=== PATIENT | female | born 1935 | race Caucasian/White ===

== ENCOUNTER 2018-01-31 09:29 | Day surgery (SDC) | payer MEDICARE, OTHER ==
[~2018-01-31] VITALS: Ht 170.2 cm; Wt 50.8 kg
[2018-01-31] MEDS ORDERED: fentaNYL 0.05 MG/ML VIAL ONE (11:45)
[2018-01-31] MEDS ORDERED: MIDAZOLAM 2 MG/2 ML VIAL ONE (11:46)
== END 2018-01-31 12:45 | disposition home or self-care (01) ==
LOC: MOR 09:29 → MMU 09:29 → MOR 12:45
PROVIDERS: ATTEND Internal Medicine Gastroenterology
DX: K31.89 Other diseases of stomach and duodenum (principal); K21.9 Gastro-esophageal reflux disease without esophagitis; E78.5 Hyperlipidemia, unspecified; M19.90 Unspecified osteoarthritis, unspecified site; M81.0 Age-related osteoporosis without current pathological fracture; Z79.899 Other long term (current) drug therapy; Z98.42 Cataract extraction status, left eye
CPT/HCPCS: 36415; 43239; 86677; J2250; J7030; J3010

== ENCOUNTER 2018-03-22 20:02 | Emergency (ER) | payer MEDICARE, OTHER ==
[~2018-03-22] VITALS: Ht 149.9 cm; Wt 49.0 kg
[2018-03-22 20:07] VITALS: BP 132/98
[2018-03-22] MEDS: KETOROLAC 30 MG/ML VIAL IM ONE (21:18)
[2018-03-22] MEDS ORDERED: DIAZEPAM 5 MG TAB ONE (21:31)
[2018-03-22] MEDS: DIAZEPAM 2 MG TAB PO STA (21:34)
[2018-03-22 21:41] VITALS: BP 129/89
== END 2018-03-22 21:41 | disposition home or self-care (01) ==
LOC: MED 20:02
DX: M16.11 Unilateral primary osteoarthritis, right hip (principal); M54.30 Sciatica, unspecified side; K21.9 Gastro-esophageal reflux disease without esophagitis
CPT/HCPCS: 73502; 96372; 99283; J1885; Q0092

== ENCOUNTER 2018-06-18 08:53 | Emergency (ER) | payer MEDICARE ==
[~2018-06-18] VITALS: Ht 134.6 cm; Wt 49.4 kg
[2018-06-18 08:55] VITALS: BP 131/73
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
--- NOTE | 2018-06-18 09:10 | NUR ---
pmh- osteoporosis, GERD, gastritis
--- NOTE | 2018-06-18 09:10 | NUR ---
PT W/C TO BED 11
--- NOTE | 2018-06-18 09:12 | NUR ---
Dr. Byrd at bedside evaluating patient.
[2018-06-18] MEDS ORDERED: MORPHINE SULFATE ORAL SOLN 2 MG/ML UDC PO ONE (09:25)
--- NOTE | 2018-06-18 09:30 | NUR ---
lab at bedside
[2018-06-18 09:43] LABS: BASOPHILS % (AUTO) 0.7 % (0.0-2.0); EOSINOPHILS # (AUTO) 0.2 K/uL (0-0.4); EOSINOPHILS % (AUTO) 3.1 % (0.0-4.0); HEMOGLOBIN 13.9 g/dL (12.0-16.0); LYMPHOCYTES % (AUTO) 17.7 % (20.5-51.1); MEAN CORPUSCULAR HEMOGLOBIN 30 pg (27-31); MEAN CORPUSCULAR HGB CONC 33 g/dL (33-37); MEAN CORPUSCULAR VOLUME 91.6 fL (80-94); MONOCYTES # (AUTO) 0.7 K/uL (0.8-1.0); MONOCYTES % (AUTO) 12.6 % (1.7-9.3); NEUTROPHILS # (AUTO) 3.9 K/uL (1.8-7.7); NEUTROPHILS % (AUTO) 65.9 % (42.2-75.2); PLATELET COUNT (AUTO) 222 K/uL (140-450); RED BLOOD CELL COUNT(AUTO) 4.58 MIL/uL (4.20-5.40); RED CELL DISTRIBUTION WIDTH 14.1 % (11.6-13.7); WHITE BLOOD COUNT (AUTO) 5.9 K/uL (4.8-10.8)
[2018-06-18 09:43] LABS: BILIRUBIN,URINE NEGATIVE (NEGATIVE); BLOOD, URINE TRACE-I (NEGATIVE); COLOR,URINE YELLOW (YELLOW); LEUKOCYTE ESTERASE ,URINE 1+ (NEGATIVE); NITRITE, URINE NEGATIVE (NEGATIVE); UGLUCOSE NEGATIVE (NEGATIVE)
[2018-06-18 09:46] LABS: APPEARANCE,URINE HAZY (CLEAR)
--- NOTE | 2018-06-18 09:46 | NUR ---
pt being taken to rad
[2018-06-18 09:52] LABS: RBC,URINE 0-5 /HPF (0-5)
[2018-06-18 10:06] LABS: ANION GAP 11.2 (8-16); CARBON DIOXIDE 27.9 mmol/L (21-32); CHLORIDE 105 mmol/L (98-107); CREATININE 0.8 mg/dL (0.6-1.3); GLUCOSE 88 mg/dL (74-106); POTASSIUM 4.1 mmol/L (3.5-5.1); SODIUM SERUM 140 mmol/L (136-145); UREA NITROGEN, BLOOD 13 mg/dL (7-18)
--- NOTE | 2018-06-18 11:04 | NUR ---
PT WHEELCHAIRED TO BATHROOM
--- NOTE | 2018-06-18 11:40 | NUR ---
RE-EVALUATING PT
[2018-06-18] MEDS ORDERED: KETOROLAC 15 MG/ML VIAL IM ONE (12:25)
--- NOTE | 2018-06-18 12:30 | NUR ---
PT AT CT
--- NOTE | 2018-06-18 12:48 | NUR ---
PT REQUESTING TO EAT, PER DR JAMA, PT IS TO REMAIN NPO AT THIS TIME
--- NOTE | 2018-06-18 15:02 | NUR ---
VSS AT THIS TIME. AA0X4. FAMILY AT BEDSIDE
[2018-06-18 17:08] VITALS: BP 138/65
--- NOTE | 2018-06-18 17:09 | NUR ---
Patient discharged with v/s stable. Written and verbal after care instructions given and explained. Patient verbalized understanding. Ambulatory with steady gait. All questions addressed prior to discharge. Advised to follow up with PMD.
== END 2018-06-18 17:09 | disposition home or self-care (01) ==
LOC: MED 08:53
DX: S22.31XA Fracture of one rib, right side, initial encounter for closed fracture (principal); M25.551 Pain in right hip; M25.511 Pain in right shoulder; R51 Headache; W18.09XA Striking against other object with subsequent fall, initial encounter; Y93.89 Activity, other specified; Y92.89 Other specified places as the place of occurrence of the external cause; Y99.8 Other external cause status
CPT/HCPCS: 36415; 70450; 71111; 72080; 72125; 72131; 72192; 73030; 73502; 73552; 80048; 81001; 85025; 87086; 96372; 99284; J1885

== ENCOUNTER 2018-10-21 21:13 | Emergency (ER) | payer MEDICARE ==
[~2018-10-21] VITALS: Ht 152.4 cm; Wt 49.9 kg
[2018-10-21 21:13] VITALS: BP 176/87
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
--- NOTE | 2018-10-21 21:13 | NUR ---
CE ALS TO ER BED 5
[2018-10-21] MEDS ORDERED: ACETAMINOPHEN EXTRA STRENGTH 500 MG TAB PO ONE (21:15)
[2018-10-21] MEDS ORDERED: ACETAMINOPHEN EXTRA STRENGTH 500 MG TAB ONE (21:34)
--- NOTE | 2018-10-21 22:30 | NUR ---
PT STATES PAIN RELIEVED. ALERT TO NAME, TIME, PLACE, AND EVENT. NO C/O AT THIS TIME. FAMILY AT BEDSIDE. CONTINUE TO MONITOR.
[2018-10-21] MEDS ORDERED: BACITRACIN OINT 500 UNITS/GM PKT TP ONE (23:15)
[2018-10-21] MEDS ORDERED: LIDOCAINE/EPI 1% 1:100000 20 ML VIAL INJ ONE (23:15)
[2018-10-22 00:05] VITALS: BP 138/86
--- NOTE | 2018-10-22 00:05 | NUR ---
DISCHARGE PAPERS GIVEN TO PT. RX OF BACITRACIN AND ACETAMINOPHEN GIVEN. SIDE EFFECTS EXPLAINED. ALERT TO NAME, PLACE, TIME, AND EVENT. 0/10 PAIN. AMBULATORY WITH STEADY GAIT. [facility]ED BY [facility] FOR [facility]. INSTRUCTED TO RETURN TO ER IN 5 DAYS FOR STAPLE REMOVAL. ALSO INSTRUCTED WHEN TO RETURN PRIOR TO ESABLISHED RETURN TIME. PT VERBALLIZED UNDERSTANDING OF DC IN STRUCTIONS. ALL QUESTIONS ANSWERED.
--- NOTE | 2018-10-22 00:07 | NUR ---
BACITRACIN PLACED ON PTS WOUND
== END 2018-10-22 00:05 | disposition home or self-care (01) ==
LOC: MED 21:13
DX: S01.01XA Laceration without foreign body of scalp, initial encounter (principal); M54.2 Cervicalgia; K21.9 Gastro-esophageal reflux disease without esophagitis; Z98.890 Other specified postprocedural states; W17.89XA Other fall from one level to another, initial encounter; Y93.89 Activity, other specified; Y92.89 Other specified places as the place of occurrence of the external cause; Y99.8 Other external cause status
CPT/HCPCS: 12001; 70450; 71045; 72125; 99284; J2001; Q0092

== ENCOUNTER 2018-10-27 12:10 | Emergency (ER) | payer MEDICARE, OTHER ==
[~2018-10-27] VITALS: Ht 147.3 cm; Wt 50.0 kg
[2018-10-27 12:29] VITALS: BP 122/67
--- NOTE | 2018-10-27 12:31 | NUR ---
PT AMBULATED TO LOBBY AT THIS TIME, VSS.
--- NOTE | 2018-10-27 13:19 | NUR ---
PT TAKEN TO BED 5.
--- NOTE | 2018-10-27 13:20 | NUR ---
PT WAS HERE AT ED ON 10/21/18 S/P MECHANICAL FALL WITH LACERATION ON L FRONTAL HEAD. PRESENTED TO ED FOR REMOVAL OF YULY ON L FRONTAL HEAD. AAOX4, GCS 15, RR EVEN UNLABORED, PAIN OF 3/10 ON LAC AREA NO SWELLING, BLEEDING, DRAINAGE NOTED, WITH [address] ED MD [address]. HUMPHREYS MADE AWARE, WILL CONTINUE TO MONITOR CLOSELY.
[2018-10-27 15:10] VITALS: BP 122/67
--- NOTE | 2018-10-27 15:10 | NUR ---
Patient discharged with v/s stable. Written and verbal after care instructions given and explained. Patient alert, oriented and verbalized understanding of instructions. Ambulatory with steady gait. All questions addressed prior to discharge. ID band removed. Patient advised to follow up with PMD. Opportunity to ask questions provided and answered.
== END 2018-10-27 15:10 | disposition home or self-care (01) ==
LOC: MED 12:10
DX: S01.81XD Laceration without foreign body of other part of head, subsequent encounter (principal); K21.9 Gastro-esophageal reflux disease without esophagitis; W18.39XD Other fall on same level, subsequent encounter
CPT/HCPCS: 99281

== ENCOUNTER 2019-08-19 04:29 | Emergency (ER) | payer MEDICARE, OTHER ==
[~2019-08-19] VITALS: Ht 142.2 cm; Wt 50.3 kg
[2019-08-19 04:31] VITALS: BP 125/86
[2019-08-19] MEDS ORDERED: NACL 0.9% 1,000 ML IV SCH (04:43)
[2019-08-19] MEDS ORDERED: KETOROLAC 30 MG/ML VIAL IVP ONE (04:45)
[2019-08-19 05:10] LABS: BASOPHILS % (AUTO) 0.6 % (0.0-2.0); EOSINOPHILS # (AUTO) 0.1 K/uL (0-0.4); HEMATOCRIT 45.5 % (36-48); HEMOGLOBIN 15.2 g/dL (12.0-16.0); LYMPHOCYTES # (AUTO) 0.9 K/uL (2.5-16.5); LYMPHOCYTES % (AUTO) 23.4 % (20.5-51.1); MEAN CORPUSCULAR HEMOGLOBIN 30 pg (27-31); MEAN CORPUSCULAR HGB CONC 33 g/dL (33-37); MEAN CORPUSCULAR VOLUME 90.9 fL (80-94); MONOCYTES # (AUTO) 0.5 K/uL (0.8-1.0); MONOCYTES % (AUTO) 13.8 % (1.7-9.3); NEUTROPHILS # (AUTO) 2.3 K/uL (1.8-7.7); NEUTROPHILS % (AUTO) 60.2 % (42.2-75.2); PLATELET COUNT (AUTO) 150 K/uL (140-450); RED BLOOD CELL COUNT(AUTO) 5.01 MIL/uL (4.20-5.40); RED CELL DISTRIBUTION WIDTH 13.8 % (11.6-13.7); WHITE BLOOD COUNT (AUTO) 3.9 K/uL (4.8-10.8)
[2019-08-19] MEDS ORDERED: ALUMINUM HYD/MAG/SIMETHICONE 30 ML UDC ONE (05:23)
[2019-08-19] MEDS ORDERED: LIDOCAINE VISCOUS 2% 20 ML UDC ONE (05:23)
[2019-08-19 05:24] LABS: ALBUMIN 3.7 g/dL (3.4-5.0); ANION GAP 15.2 (8-16); ASPARTATE AMINOTRANSFERASE 29 U/L (15-37); CARBON DIOXIDE 26.2 mmol/L (21-32); CHLORIDE 98 mmol/L (98-107); CREATININE 0.9 mg/dL (0.6-1.3); GLUCOSE 120 mg/dL (74-106); LIPASE 264 U/L (73-393); POTASSIUM 4.4 mmol/L (3.5-5.1); SODIUM SERUM 135 mmol/L (136-145); TOTAL BILIRUBIN 0.4 mg/dL (0.0-1.0); UREA NITROGEN, BLOOD 10 mg/dL (7-18)
[2019-08-19] MEDS ORDERED: DICYCLOMINE HCL LIQUID 10 MG/5 ML UDC ONE (05:24)
[2019-08-19] MEDS ORDERED: DICYCLOMINE HCL LIQUID 20 MG, ALUMINUM HYD/MAG/SIMETHICONE 30 ML, LIDOCAINE VISCOUS 2% ... PO ONE ×3 (05:25)
[2019-08-19 05:53] VITALS: BP 125/86
== END 2019-08-19 05:54 | disposition home or self-care (01) ==
LOC: MED 04:29
DX: R10.13 Epigastric pain (principal); R11.2 Nausea with vomiting, unspecified; K21.9 Gastro-esophageal reflux disease without esophagitis
CPT/HCPCS: 36415; 80053; 83690; 85025; 96361; 96374; 99283; J1885; J7030

== ENCOUNTER 2019-08-20 03:17 | Emergency (ER) | payer MEDICARE, OTHER ==
[~2019-08-20] VITALS: Ht 147.3 cm; Wt 50.8 kg
[2019-08-20 03:25] VITALS: BP 133/78
--- NOTE | 2019-08-20 03:27 | NUR ---
PT AMBULATED TO BED #11
--- NOTE | 2019-08-20 03:31 | NUR ---
83F PRESENTS TO ED WITH C/O ABDOMINAL PAIN WITH N/V X4 DAYS. PT WAS SEEN YESTERDAY AND WAS SENT HOME WITH PAIN MEDS. DENIES DIARRHEA AND BLOOD IN STOOL. DENIES SOB/COUGH. RESPIRATIONS EVEN AND UNLABORED. BED LOWEST AND LOCKED. MEDHX- NONE NKA
--- NOTE | 2019-08-20 03:44 | NUR ---
ANTHONY GARCIA AT BEDSIDE EVALUATING PT
[2019-08-20] MEDS ORDERED: ONDANSETRON 4 MG/2 ML VIAL IVP ONE (03:50)
[2019-08-20] MEDS ORDERED: MORPHINE SULFATE 4 MG/ML SYR IVP ONE (03:50)
--- NOTE | 2019-08-20 03:59 | NUR ---
PT MEDICATED WITH ZOFRAN AND MORPHINE IVP
--- NOTE | 2019-08-20 04:01 | NUR ---
BLOOD DRAWN AND SENT TO LAB
[2019-08-20 04:19] LABS: HEMATOCRIT 40.6 % (36-48); HEMOGLOBIN 13.7 g/dL (12.0-16.0); MEAN CORPUSCULAR HEMOGLOBIN 31 pg (27-31); MEAN CORPUSCULAR HGB CONC 34 g/dL (33-37); MEAN CORPUSCULAR VOLUME 90.6 fL (80-94); PLATELET COUNT (AUTO) 146 K/uL (140-450); RED BLOOD CELL COUNT(AUTO) 4.48 MIL/uL (4.20-5.40); RED CELL DISTRIBUTION WIDTH 13.2 % (11.6-13.7); WHITE BLOOD COUNT (AUTO) 2.7 K/uL (4.8-10.8)
[2019-08-20 04:22] LABS: ALBUMIN 3.3 g/dL (3.4-5.0); ASPARTATE AMINOTRANSFERASE 30 U/L (15-37); CARBON DIOXIDE 26.2 mmol/L (21-32); CHLORIDE 99 mmol/L (98-107); CREATININE 0.9 mg/dL (0.6-1.3); GLUCOSE 123 mg/dL (74-106); LIPASE 381 U/L (73-393); POTASSIUM 4.2 mmol/L (3.5-5.1); SODIUM SERUM 134 mmol/L (136-145); TOTAL BILIRUBIN 0.4 mg/dL (0.0-1.0); UREA NITROGEN, BLOOD 8 mg/dL (7-18)
[2019-08-20 04:26] LABS: EOSINOPHILS % (MANUAL) 2 % (0-4); LYMPHOCYTES % (MANUAL) 34 % (20-46); MONOCYTES % (MANUAL) 13 % (5-12)
[2019-08-20 04:46] VITALS: BP 123/76
--- NOTE | 2019-08-20 04:47 | NUR ---
PT REPORTS DECREASED PAIN FROM 9/10 TO 4/10 AND TOLERABLE. NO FURTHER NEEDS AT THIS TIME. PT LAYING DOWN IN BED WITH HOB ELEVATED AND BED LOWEST AND LOCKED
--- NOTE | 2019-08-20 05:12 | NUR ---
PT TAKEN TO CT VIA [facility]
--- NOTE | 2019-08-20 05:28 | NUR ---
PT RETURNED FROM CT TO BED 11
--- NOTE | 2019-08-20 06:33 | NUR ---
Patient discharged with v/s stable. Written and verbal after care instructions given and explained. Patient alert, oriented and verbalized understanding of instructions. Ambulatory with steady gait. All questions addressed prior to discharge. ID band removed. Patient advised to follow up with PMD. Rx of ZOFRAN AND NORCO given. Patient educated on indication of medication including possible reaction and side effects. Opportunity to ask questions provided and answered.
== END 2019-08-20 06:34 | disposition home or self-care (01) ==
LOC: MED 03:17
DX: R10.9 Unspecified abdominal pain (principal); K21.9 Gastro-esophageal reflux disease without esophagitis
CPT/HCPCS: 36415; 74177; 80053; 83690; 85025; 96374; 96375; 99285; J2270; J2405; Q9967

== ENCOUNTER 2020-12-04 23:50 | Observation (INO) | payer OTHER, MEDICARE, SELFPAY ==
[~2020-12-04] VITALS: Ht 144.8 cm; Wt 46.7 kg
[2020-12-05 00:46] VITALS: BP 154/90
[2020-12-05] MEDS ORDERED: ACETAMINOPHEN EXTRA STRENGTH 500 MG TAB PO ONE (00:55)
[2020-12-05] MEDS ORDERED: DICYCLOMINE HCL LIQUID 20 MG, ALUMINUM HYD/MAG/SIMETHICONE 30 ML, LIDOCAINE VISCOUS 2% ... PO ONE ×3 (00:55)
[2020-12-05] MEDS ORDERED: ONDANSETRON 4 MG ODT PO ONE (00:55)
[2020-12-05] MEDS ORDERED: ONDANSETRON 4 MG ODT ONE (00:59)
[2020-12-05] MEDS ORDERED: ACETAMINOPHEN EXTRA STRENGTH 500 MG TAB ONE ×2 (01:00→02:40)
[2020-12-05] MEDS ORDERED: DICYCLOMINE HCL LIQUID 10 MG/5 ML UDC ONE ×2 (01:01→02:41)
[2020-12-05] MEDS ORDERED: ALUMINUM HYD/MAG/SIMETHICONE 30 ML UDC ONE (01:01)
[2020-12-05 01:16] LABS: BASOPHILS % (AUTO) 0.3 % (0.0-2.0); EOSINOPHILS # (AUTO) 0.1 K/uL (0-0.4); EOSINOPHILS % (AUTO) 2.5 % (0.0-4.0); HEMATOCRIT 42.1 % (36-48); HEMOGLOBIN 14.2 g/dL (12.0-16.0); LYMPHOCYTES # (AUTO) 0.8 K/uL (2.5-16.5); LYMPHOCYTES % (AUTO) 14.2 % (20.5-51.1); MEAN CORPUSCULAR HEMOGLOBIN 31 pg (27-31); MEAN CORPUSCULAR HGB CONC 34 g/dL (33-37); MONOCYTES # (AUTO) 0.5 K/uL (0.8-1.0); NEUTROPHILS # (AUTO) 4.5 K/uL (1.8-7.7); PLATELET COUNT (AUTO) 206 K/uL (140-450); RED BLOOD CELL COUNT(AUTO) 4.62 MIL/uL (4.20-5.40); RED CELL DISTRIBUTION WIDTH 13.9 % (11.6-13.7); WHITE BLOOD COUNT (AUTO) 5.9 K/uL (4.8-10.8)
[2020-12-05 01:35] LABS: ALBUMIN 3.9 g/dL (3.4-5.0); ANION GAP 10.6 (8-16); ASPARTATE AMINOTRANSFERASE 200 U/L (15-37); CARBON DIOXIDE 29.1 mmol/L (21-32); CHLORIDE 102 mmol/L (98-107); CREATININE 0.8 mg/dL (0.6-1.3); GLUCOSE 134 mg/dL (74-106); LIPASE 809 U/L (73-393); POTASSIUM 3.7 mmol/L (3.5-5.1); SODIUM SERUM 138 mmol/L (136-145); TOTAL BILIRUBIN 0.8 mg/dL (0.0-1.0); UREA NITROGEN, BLOOD 18 mg/dL (7-18)
[2020-12-05] MEDS ORDERED: NACL 0.9% 1,000 ML IV ONE (02:00)
[2020-12-05] MEDS ORDERED: ONDANSETRON 4 MG TAB ONE (02:44)
[2020-12-05] MEDS ORDERED: MORPHINE SULFATE 2 MG/ML SYR IVP PRN (06:30)
[2020-12-05] MEDS ORDERED: ACETAMINOPHEN 325 MG TAB PO PRN (06:30)
[2020-12-05] MEDS ORDERED: POTASSIUM CHLORIDE 40 MEQ, LIDOCAINE MPF 1% 25 MG in NACL 0.9% 250 ML IV PRN (06:30)
[2020-12-05] MEDS ORDERED: DOCUSATE SODIUM 100 MG GELCAP PO PRN (06:30)
[2020-12-05] MEDS ORDERED: MAG SULF 2000 MG/WATER PREMIX 50 ML IV PRN (06:30)
[2020-12-05] MEDS ORDERED: ONDANSETRON 4 MG/2 ML VIAL IM/IVP PRN (06:30)
[2020-12-05] MEDS ORDERED: HYDROcodone/APAP 5/325 MG 1 TAB TAB PO PRN (06:30)
[2020-12-05] MEDS ORDERED: SODIUM PHOS / POTASSIUM PHOS 1 PKT PDR PO PRN (06:30)
[2020-12-05] MEDS ORDERED: hydrALAZINE 10 MG TAB PO PRN (06:50)
[2020-12-05 07:08] LABS: MAGNESIUM 2.3 mg/dL (1.8-2.4)
[2020-12-05] MEDS: PANTOPRAZOLE 40 MG INJ VIAL IVP SCH (08:47)
[2020-12-05] MEDS: NACL 0.9% 1,000 ML IV SCH ×2 (08:48→19:40)
[2020-12-05 12:41] LABS: ALBUMIN 3.3 g/dL (3.4-5.0); ANION GAP 11.1 (8-16); ASPARTATE AMINOTRANSFERASE 550 U/L (15-37); CHLORIDE 108 mmol/L (98-107); CREATININE 0.7 mg/dL (0.6-1.3); GLUCOSE 119 mg/dL (74-106); POTASSIUM 4.1 mmol/L (3.5-5.1); SODIUM SERUM 141 mmol/L (136-145); TOTAL BILIRUBIN 2.1 mg/dL (0.0-1.0); UREA NITROGEN, BLOOD 12 mg/dL (7-18)
[2020-12-05] MEDS: amLODIPine 5 MG TAB PO SCH (14:25)
[2020-12-05 22:10] VITALS: BP 132/66
[2020-12-06 04:00] VITALS: BP 112/70
[2020-12-06 07:12] LABS: ANION GAP 14.3 (8-16); CARBON DIOXIDE 23.8 mmol/L (21-32); CHLORIDE 105 mmol/L (98-107); CREATININE 0.7 mg/dL (0.6-1.3); GLUCOSE 73 mg/dL (74-106); POTASSIUM 4.1 mmol/L (3.5-5.1); SODIUM SERUM 139 mmol/L (136-145); UREA NITROGEN, BLOOD 8 mg/dL (7-18)
[2020-12-06 07:13] LABS: BASOPHILS % (AUTO) 0.1 % (0.0-2.0); EOSINOPHILS # (AUTO) 0.1 K/uL (0-0.4); EOSINOPHILS % (AUTO) 1.9 % (0.0-4.0); HEMATOCRIT 40.5 % (36-48); HEMOGLOBIN 13.5 g/dL (12.0-16.0); LYMPHOCYTES # (AUTO) 0.6 K/uL (2.5-16.5); LYMPHOCYTES % (AUTO) 10.5 % (20.5-51.1); MEAN CORPUSCULAR HEMOGLOBIN 30 pg (27-31); MEAN CORPUSCULAR HGB CONC 33 g/dL (33-37); MEAN CORPUSCULAR VOLUME 91.2 fL (80-94); MONOCYTES # (AUTO) 0.7 K/uL (0.8-1.0); MONOCYTES % (AUTO) 11.3 % (1.7-9.3); NEUTROPHILS # (AUTO) 4.4 K/uL (1.8-7.7); NEUTROPHILS % (AUTO) 76.2 % (42.2-75.2); PLATELET COUNT (AUTO) 176 K/uL (140-450); RED BLOOD CELL COUNT(AUTO) 4.44 MIL/uL (4.20-5.40); RED CELL DISTRIBUTION WIDTH 14.1 % (11.6-13.7); WHITE BLOOD COUNT (AUTO) 5.8 K/uL (4.8-10.8)
[2020-12-06 08:00] VITALS: BP 121/66
[2020-12-06] MEDS: PANTOPRAZOLE 40 MG INJ VIAL IVP SCH (08:44)
[2020-12-06] MEDS: amLODIPine 5 MG TAB PO SCH (08:45)
[2020-12-06] MEDS ORDERED: AMLO-3 PO (09:06)
[2020-12-06] MEDS ORDERED: SUCR1TAB35 PO (09:06)
[2020-12-06] MEDS ORDERED: FAMO-90 PO (09:06)
[2020-12-06 09:30] LABS: BILIRUBIN,DIRECT 2.5 mg/dL (0.0-0.3); TOTAL BILIRUBIN 3.5 mg/dL (0.0-1.0)
[2020-12-06 10:14] VITALS: BP 121/66
[2020-12-07 08:07] LABS: HEPATITIS A ANTIBODY IGM Negative (Negative); HEPATITIS B CORE AB TOTAL Negative (Negative); HEPATITIS B SURFACE ANTIBODY Non Reactive (.); HEPATITIS B SURFACE ANTIGEN Negative (Negative)
== END 2020-12-06 12:20 | disposition home or self-care (01) ==
LOC: MED 23:50 → MTU 12-05 05:22
PROVIDERS: ADMIT Hospitalist; ATTEND Hospitalist
DX: K85.90 Acute pancreatitis without necrosis or infection, unspecified (principal); Z20.822 Contact with and (suspected) exposure to COVID-19; K80.20 Calculus of gallbladder without cholecystitis without obstruction; K21.9 Gastro-esophageal reflux disease without esophagitis; R74.01 Elevation of levels of liver transaminase levels; M19.90 Unspecified osteoarthritis, unspecified site; M54.5 Low back pain; E80.6 Other disorders of bilirubin metabolism; E44.1 Mild protein-calorie malnutrition; Z87.19 Personal history of other diseases of the digestive system; Z86.19 Personal history of other infectious and parasitic diseases; Z79.899 Other long term (current) drug therapy
CPT/HCPCS: 36415; 74176; 76705; 80048; 80053; 80076; 83690; 83735; 84100; 84484; 85025; 86704; 86706; 86708; 86709; 86803; 87081; 87340; 87426; 93005; 96361; 96372; 96374; 96376; 97162; 99285; C9113; G0378; J1644; Q0092; Q0162

== ENCOUNTER 2020-12-27 15:08 | Emergency (ER) | payer MEDICARE, OTHER ==
[~2020-12-27] VITALS: Ht 152.4 cm; Wt 44.5 kg
[~2020-12-27 15:08] MED LIST: AMLO-3 PO; FAMO-90 PO; SUCR1TAB35 PO
[2020-12-27 15:21] VITALS: BP 155/82
[2020-12-27] MEDS ORDERED: ONDANSETRON 4 MG/2 ML VIAL IVP ONE (15:50)
[2020-12-27] MEDS ORDERED: MORPHINE SULFATE 4 MG/ML SYR IVP ONE (15:50)
--- NOTE | 2020-12-27 16:00 | NUR ---
Dr. Shaw is evaluating patient at bedside.
--- NOTE | 2020-12-27 16:05 | NUR ---
85 y/o F BIB self from home c/o RUQ abdominal pain x 1 day. Patient A&Ox4, ambulatory, states R-sided abdominal pain, 10/10, pressure/constant, non-radiating pain. Patient also states associated nausea without vomiting. Denies dysuria, urinary symptoms, fever, chills, vomiting, diarrhea, constipation, SOB, chest pain. Abdomen soft/round/tender RUQ. Bowel sounds normoactive x 4 quadrants. Pt placed into a gown and court monitor. VSS; respirations even/unlabored. Bed locked in lowest position, side rails x 1, call light in reach. Unable to obtain urine sample at this time. PMH: pancreatitis, HTN, GERD, arthritis, hepatitis NKA
--- NOTE | 2020-12-27 16:06 | NUR ---
RAD at bedside
--- NOTE | 2020-12-27 16:10 | NUR ---
US tech at bedside
[2020-12-27 16:11] LABS: BASOPHILS # (AUTO) 0.1 K/uL (0.00-0.22); BASOPHILS % (AUTO) 0.9 % (0.0-2.0); EOSINOPHILS # (AUTO) 0.2 K/uL (0-0.4); EOSINOPHILS % (AUTO) 2.7 % (0.0-4.0); HEMATOCRIT 40.4 % (36-48); HEMOGLOBIN 13.5 g/dL (12.0-16.0); LYMPHOCYTES # (AUTO) 1.7 K/uL (2.5-16.5); MEAN CORPUSCULAR HEMOGLOBIN 30 pg (27-31); MEAN CORPUSCULAR HGB CONC 34 g/dL (33-37); MONOCYTES # (AUTO) 0.9 K/uL (0.8-1.0); MONOCYTES % (AUTO) 12.8 % (1.7-9.3); NEUTROPHILS # (AUTO) 4.3 K/uL (1.8-7.7); NEUTROPHILS % (AUTO) 59.6 % (42.2-75.2); PLATELET COUNT (AUTO) 228 K/uL (140-450); RED BLOOD CELL COUNT(AUTO) 4.49 MIL/uL (4.20-5.40); RED CELL DISTRIBUTION WIDTH 13.9 % (11.6-13.7); WHITE BLOOD COUNT (AUTO) 7.2 K/uL (4.8-10.8)
--- NOTE | 2020-12-27 16:25 | NUR ---
Patient asleep in high-fowlers, desaturated to 77% on room air. Pt placed onto 4L by OK new SpO2 99%. Dr. Shaw made aware.
[2020-12-27 16:30] LABS: ALBUMIN 3.8 g/dL (3.4-5.0); ASPARTATE AMINOTRANSFERASE 172 U/L (15-37); CHLORIDE 101 mmol/L (98-107); CREATININE 0.8 mg/dL (0.6-1.3); GLUCOSE 118 mg/dL (74-106); LIPASE 174 U/L (73-393); SODIUM SERUM 136 mmol/L (136-145); TOTAL BILIRUBIN 1.5 mg/dL (0.0-1.0); UREA NITROGEN, BLOOD 15 mg/dL (7-18)
--- NOTE | 2020-12-27 16:30 | NUR ---
Unable to obtain urine sample at this time.
--- NOTE | 2020-12-27 17:30 | NUR ---
Pt states + relief to pain 0/10, denies nausea. All pt needs met.
[2020-12-27] MEDS ORDERED: ACET-8386 PO (17:34)
[2020-12-27] MEDS ORDERED: ONDA-24 PO (17:34)
[2020-12-27 17:45] VITALS: BP 129/53
--- NOTE | 2020-12-27 17:47 | NUR ---
Patient discharged with v/s stable. Written and verbal after care instructions given and explained. Patient alert, oriented and verbalized understanding of instructions. Ambulatory with steady gait. All questions addressed prior to discharge. ID band removed. Patient advised to follow up with PMD. Rx of Hydrocodone/Acetaminophen, Zofran given. Patient educated on indication of medication including possible reaction and side effects. Opportunity to ask questions provided and answered.
== END 2020-12-27 17:47 | disposition home or self-care (01) ==
LOC: MED 15:08
DX: K80.20 Calculus of gallbladder without cholecystitis without obstruction (principal); Z20.822 Contact with and (suspected) exposure to COVID-19; K21.9 Gastro-esophageal reflux disease without esophagitis; I10 Essential (primary) hypertension; Z79.899 Other long term (current) drug therapy; Z79.891 Long term (current) use of opiate analgesic
CPT/HCPCS: 36415; 71045; 76705; 80053; 82140; 83690; 85025; 87426; 96374; 96375; 99285; J2270; J2405; Q0092

== ENCOUNTER 2021-08-06 13:27 | Emergency (ER) | payer MEDICARE, OTHER ==
[~2021-08-06] VITALS: Ht 154.9 cm; Wt 43.5 kg
[~2021-08-06 13:27] MED LIST changes: +ACET-8386 PO; +ONDA-188 PO
--- NOTE | 2021-08-06 13:30 | NUR ---
ADINA ENCINAS VIA GURNEY TO BED 04.
[2021-08-06 13:32] VITALS: BP 185/90
--- NOTE | 2021-08-06 13:45 | NUR ---
IRRIGATED WOUND LOCATED ON LEFT SIDE OF FOREHEAD/BROW AREA. IRRIGATED WOUND WITH NORMAL SALINE AND CLEANED BLOOD AWAY FROM SURROUNDING AREA. PA NOTIFIED.
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
[2021-08-06] MEDS ORDERED: BACITRACIN OINT 500 UNITS/GM PKT TP ONE (14:00)
[2021-08-06] MEDS ORDERED: KETOROLAC 60 MG/2 ML VIAL IM ONE (14:00)
[2021-08-06] MEDS ORDERED: LIDOCAINE MPF 1% 10 MG/ML VIAL INJ ONE (14:00)
--- NOTE | 2021-08-06 14:14 | NUR ---
PA BEDSIDE PERFORMING LACERATION REPAIR ON PATIENT
--- NOTE | 2021-08-06 14:21 | NUR ---
PT TAKEN TO XRAY VIA [facility]
--- NOTE | 2021-08-06 14:38 | NUR ---
PT RETURNED TO BED [address] [facility] [facility]
[2021-08-06] MEDS ORDERED: IBUP-2213 PO (15:03)
--- NOTE | 2021-08-06 15:29 | NUR ---
Patient appears to be resting comfortably in bed. Vital Signs within normal limits. Respirations even and unlabored.
[2021-08-06 15:33] VITALS: BP 91/68
== END 2021-08-06 15:33 | disposition home or self-care (01) ==
LOC: MED 13:27
DX: S01.112A Laceration without foreign body of left eyelid and periocular area, initial encounter (principal); M54.50 Low back pain, unspecified; Z90.49 Acquired absence of other specified parts of digestive tract; Z98.890 Other specified postprocedural states; Z79.899 Other long term (current) drug therapy; Z79.891 Long term (current) use of opiate analgesic; W01.198A Fall on same level from slipping, tripping and stumbling with subsequent striking against other object, initial encounter; Y92.000 Kitchen of unspecified non-institutional (private) residence as the place of occurrence of the external cause; Y93.89 Activity, other specified; Y99.8 Other external cause status
CPT/HCPCS: 12011; 72100; 90471; 90715; 96372; 99284; J1885; J2001

== ENCOUNTER 2021-08-15 10:52 | Emergency (ER) | payer MEDICARE, OTHER ==
[~2021-08-15] VITALS: Ht 142.2 cm; Wt 42.3 kg
[~2021-08-15 10:52] MED LIST changes: +IBUP-2213 PO
[2021-08-15 10:55] VITALS: BP 152/84
--- NOTE | 2021-08-15 11:58 | NUR ---
pt placed in t[place]mina at this time. lac tray set up at this time.
--- NOTE | 2021-08-15 12:10 | NUR ---
85 Y/O FEMALE, PATIENT PRESENTS TO ED WITH C/O LOW BACK PAIN AFTER FALL THIS WEEK. PT STATES SHE WAS SEEN HERE PREVIOUSLY FOR SAME C/O WITH LAC ON LEFT EYEBROW, PAIN IN LOW BACK HAS NOT RESOLVED. PT IS ALSO HERE FOR SUTURE REMOVAL, AREA IS CLEAN/DRY, NO EDEMA/SWELLING/BLEEDING/REDNESS/DISCHARGE AT SITE OF SUTURES. DENIES N/V/D; SKIN IS PINK/WARM/DRY; AAOX4 WITH EVEN AND STEADY GAIT; LUNGS CLEAR BL; HR EVEN AND REGULAR; PT DENIES ANY FEVER, CP, SOB, OR COUGH AT THIS TIME; PATIENT STATES PAIN OF 10/10 AT THIS TIME; VSS; PATIENT POSITIONED FOR COMFORT; HOB ELEVATED; BEDRAILS UP X2; BED DOWN. ER MD MADE AWARE OF PT STATUS. PMH: GASTRITIS MED: TYLENOL (SOME RELIEF) NKA
--- NOTE | 2021-08-15 12:17 | NUR ---
pa hong assessing pt at this time
[2021-08-15] MEDS ORDERED: BACI1PAC6 TP (12:22)
[2021-08-15] MEDS ORDERED: BACITRACIN OINT 500 UNITS/GM PKT TP SCH (12:35)
[2021-08-15 13:08] VITALS: BP 152/84
--- NOTE | 2021-08-15 13:08 | NUR ---
UNABLE TO FIND PT AT THIS TIME IN ER OR LOBBY. LEFT WITHOUT DX PAPER AT THIS TIME
== END 2021-08-15 13:08 | disposition home or self-care (01) ==
LOC: MED 10:52
DX: S01.112D Laceration without foreign body of left eyelid and periocular area, subsequent encounter (principal); Z48.02 Encounter for removal of sutures; K21.9 Gastro-esophageal reflux disease without esophagitis; Z79.2 Long term (current) use of antibiotics; Z79.1 Long term (current) use of non-steroidal anti-inflammatories (NSAID); Z79.899 Other long term (current) drug therapy; Z79.891 Long term (current) use of opiate analgesic; W01.198D Fall on same level from slipping, tripping and stumbling with subsequent striking against other object, subsequent encounter
CPT/HCPCS: 99281

== ENCOUNTER 2022-02-02 11:39 | Emergency (ER) | payer MEDICARE, OTHER ==
[~2022-02-02] VITALS: Ht 149.9 cm; Wt 43.1 kg
[~2022-02-02 11:39] MED LIST changes: +BACI1PAC6 TP
[2022-02-02 11:45] VITALS: BP 156/64
--- NOTE | 2022-02-02 11:57 | NUR ---
PT AMBULATED TO ROOM 7
--- NOTE | 2022-02-02 12:18 | NUR ---
DR DUNLAP EVALUATING PT AT THIS TIME
[2022-02-02] MEDS ORDERED: LORazepam 0.5 MG TAB PO ONE (12:20)
[2022-02-02] MEDS ORDERED: ATI.5 PO (13:02)
[2022-02-02 13:30] VITALS: BP 137/81
--- NOTE | 2022-02-02 13:30 | NUR ---
Patient discharged with v/s stable. Written and verbal after care instructions FOR PALPITATIONS given and explained. Patient alert, oriented and verbalized understanding of instructions. Ambulatory with steady gait. All questions addressed prior to discharge. ID band removed. Patient advised to follow up with PMD. Rx of ATIVAN given. Opportunity to ask questions provided and answered.
== END 2022-02-02 13:30 | disposition home or self-care (01) ==
LOC: MED 11:39
DX: K30 Functional dyspepsia (principal); R00.2 Palpitations; K29.70 Gastritis, unspecified, without bleeding
CPT/HCPCS: 93005; 99283

== ENCOUNTER 2022-05-04 14:02 | Emergency (ER) | payer MEDICARE, OTHER ==
[~2022-05-04] VITALS: Ht 144.8 cm; Wt 43.5 kg
[~2022-05-04 14:02] MED LIST changes: -ACET-8386 PO; +ACET-8905 PO; +ATI.5 PO; +BACI-416 TP; -BACI1PAC6 TP
[2022-05-04 14:18] VITALS: BP 127/77
--- NOTE | 2022-05-04 15:13 | NUR ---
86 Y/O FEMALE BIB SELF C/O COLD S/SX4 DAYS, COUGH, RUNNY NOSE, HEADACHE, SORE THROAT, SUBJECTIVE FEVERS. DENIES SOB, NV, BLS CLEAR. DENIES TAKING MEDICATION FOR S/S NKA PMH: DENIES
[2022-05-04] MEDS ORDERED: IBUP-2213 PO (16:06)
[2022-05-04] MEDS ORDERED: PROM118S5 PO (16:06)
[2022-05-04] MEDS ORDERED: LIDO15SO PO (16:06)
[2022-05-04 16:33] VITALS: BP 127/76
--- NOTE | 2022-05-04 16:33 | NUR ---
Patient discharged with v/s stable. Written and verbal after care instructions FOR UPPER RESPIRATORY INFECTION given and explained. Patient alert, oriented and verbalized understanding of instructions. Ambulatory with steady gait. All questions addressed prior to discharge. ID band removed. Patient advised to follow up with PMD. Rx of IBUPROFEN, LIDOCAINE HCL AND PROMETHAZINE given. Opportunity to ask questions provided and answered.
== END 2022-05-04 16:33 | disposition home or self-care (01) ==
LOC: MED 14:02
DX: J06.9 Acute upper respiratory infection, unspecified (principal); Z20.822 Contact with and (suspected) exposure to COVID-19; K21.9 Gastro-esophageal reflux disease without esophagitis; Z79.899 Other long term (current) drug therapy; Z79.1 Long term (current) use of non-steroidal anti-inflammatories (NSAID); Z79.2 Long term (current) use of antibiotics; Z79.891 Long term (current) use of opiate analgesic
CPT/HCPCS: 71045; 99284

== ENCOUNTER 2022-10-27 11:22 | Emergency (ER) | payer MEDICARE, OTHER ==
[~2022-10-27] VITALS: Ht 157.5 cm; Wt 68.0 kg
[~2022-10-27 11:22] MED LIST changes: -BACI-416 TP; +BACI-418 TP; +LIDO15SO4 PO; +PROM118S5 PO
[2022-10-27 11:35] VITALS: BP 160/92; PULSE 89; RESP 20; TEMP 97.6; O2SAT 99
[2022-10-27 12:10] LABS: BASOPHILS % (AUTO) 0.6 % (0.0-2.0); EOSINOPHILS # (AUTO) 0.2 K/uL (0-0.4); EOSINOPHILS % (AUTO) 2.3 % (0.0-4.0); HEMATOCRIT 42.7 % (36-48); HEMOGLOBIN 14.2 g/dL (12.0-16.0); LYMPHOCYTES # (AUTO) 1.5 K/uL (2.5-16.5); LYMPHOCYTES % (AUTO) 19.3 % (20.5-51.1); MEAN CORPUSCULAR HEMOGLOBIN 30 pg (27-31); MEAN CORPUSCULAR HGB CONC 33 g/dL (33-37); MEAN CORPUSCULAR VOLUME 90.8 fL (80-94); MONOCYTES # (AUTO) 0.7 K/uL (0.8-1.0); MONOCYTES % (AUTO) 9.4 % (1.7-9.3); NEUTROPHILS # (AUTO) 5.2 K/uL (1.8-7.7); NEUTROPHILS % (AUTO) 68.4 % (42.2-75.2); PLATELET COUNT (AUTO) 229 K/uL (140-450); RED CELL DISTRIBUTION WIDTH 14.1 % (11.6-13.7); WHITE BLOOD COUNT (AUTO) 7.6 K/uL (4.8-10.8)
[2022-10-27 12:28] LABS: APPEARANCE,URINE CLEAR (CLEAR); BILIRUBIN,URINE NEGATIVE (NEGATIVE); BLOOD, URINE 1+ (NEGATIVE); COLOR,URINE YELLOW (YELLOW); LEUKOCYTE ESTERASE ,URINE NEGATIVE (NEGATIVE); NITRITE, URINE NEGATIVE (NEGATIVE); PH,URINE 6.5 (5.0-9.0); PROTEIN,URINE NEGATIVE (NEGATIVE); UGLUCOSE NEGATIVE (NEGATIVE); UROBILINOGEN,URINE 0.2 EU/dL (0.2 - 1)
[2022-10-27 12:35] LABS: BACTERIA,URINE 0-2 /HPF (None Seen); SQUAMOUS EPITHELIAL CELL,UR 4-10 (MOD) /LPF (0-3 (FEW)); WBC,URINE 0-5 /HPF (0-5)
[2022-10-27 12:36] LABS: ALANINE AMINOTRANSFERASE 19 U/L (12-78); ALBUMIN 3.7 g/dL (3.4-5.0); ALKALINE PHOSPHATASE 122 U/L (50-136); ANION GAP 13.7 (8-16); ASPARTATE AMINOTRANSFERASE 26 U/L (15-37); CARBON DIOXIDE 26.1 mmol/L (21-32); CHLORIDE 101 mmol/L (98-107); CREATININE 0.9 mg/dL (0.6-1.3); GLUCOSE 117 mg/dL (74-106); LIPASE 155 U/L (73-393); POTASSIUM 3.8 mmol/L (3.5-5.1); SODIUM SERUM 137 mmol/L (136-145); TOTAL BILIRUBIN 0.4 mg/dL (0.0-1.0); TOTAL PROTEIN, SERUM 7.8 g/dL (6.4-8.2); UREA NITROGEN, BLOOD 13 mg/dL (7-18)
[2022-10-27] MEDS ORDERED: PYR100 PO (13:48)
[2022-10-27] MEDS ORDERED: NITR100C7 PO (13:48)
[2022-10-27 14:06] VITALS: BP 152/89; PULSE 85; RESP 20; TEMP 97.6; O2SAT 99
== END 2022-10-27 14:06 | disposition home or self-care (01) ==
LOC: MED 11:22
DX: N30.90 Cystitis, unspecified without hematuria (principal); K21.9 Gastro-esophageal reflux disease without esophagitis; Z79.899 Other long term (current) drug therapy
CPT/HCPCS: 36415; 80053; 81001; 83690; 85025; 86886; 86900; 86901; 99283

== ENCOUNTER 2022-12-03 15:00 | Emergency (ER) | payer MEDICARE, OTHER ==
[~2022-12-03] VITALS: Ht 144.8 cm; Wt 54.4 kg
[~2022-12-03 15:00] MED LIST changes: +NITR100C7 PO; +PYR100 PO
[2022-12-03 15:02] VITALS: BP 156/73; PULSE 77; RESP 18; TEMP 98.3; O2SAT 100
[2022-12-03 16:54] VITALS: O2SAT 100
[2022-12-03] MEDS ORDERED: KETOROLAC 60 MG/2 ML VIAL IM ONE (16:55)
[2022-12-03] MEDS ORDERED: IBUP-2213 PO (17:20)
== END 2022-12-03 17:39 | disposition home or self-care (01) ==
LOC: MED 15:00
DX: R51.9 Headache, unspecified (principal); R68.83 Chills (without fever); R11.0 Nausea; K21.9 Gastro-esophageal reflux disease without esophagitis; Z90.49 Acquired absence of other specified parts of digestive tract; Z79.899 Other long term (current) drug therapy
CPT/HCPCS: 70450; 81002; 82948; 96372; 99285; J1885

== ENCOUNTER 2023-10-01 15:29 | Emergency (ER) | payer MEDICARE, OTHER ==
[~2023-10-01] VITALS: Ht 152.4 cm; Wt 49.9 kg
[~2023-10-01 15:29] MED LIST changes: +LIDO15SO10 PO; -LIDO15SO4 PO; +SUCR-3 PO; -SUCR1TAB35 PO
[2023-10-01 15:46] VITALS: BP 147/70; PULSE 77; RESP 18; TEMP 98.3; O2SAT 97
[2023-10-01] MEDS ORDERED: DICYCLOMINE HCL LIQUID 10 MG/5 ML UDC ONE (16:11)
[2023-10-01] MEDS ORDERED: ALUMINUM HYD/MAG/SIMETHICONE 30 ML UDC ONE (16:11)
[2023-10-01] MEDS: DICYCLOMINE HCL LIQUID 20 MG, ALUMINUM HYD/MAG/SIMETHICONE 30 ML, LIDOCAINE VISCOUS 2% ... PO ONE (16:29)
[2023-10-01 16:42] LABS: BASOPHILS % (AUTO) 0.7 % (0.0-2.0); EOSINOPHILS # (AUTO) 0.3 K/uL (0-0.4); EOSINOPHILS % (AUTO) 5.2 % (0.0-4.0); HEMATOCRIT 41.6 % (36-48); HEMOGLOBIN 13.7 g/dL (12.0-16.0); LYMPHOCYTES # (AUTO) 1.8 K/uL (2.5-16.5); LYMPHOCYTES % (AUTO) 31.3 % (20.5-51.1); MEAN CORPUSCULAR HEMOGLOBIN 30 pg (27-31); MEAN CORPUSCULAR HGB CONC 33 g/dL (33-37); MEAN CORPUSCULAR VOLUME 89.7 fL (80-94); MONOCYTES # (AUTO) 0.6 K/uL (0.8-1.0); MONOCYTES % (AUTO) 10.7 % (1.7-9.3); NEUTROPHILS % (AUTO) 52.1 % (42.2-75.2); PLATELET COUNT (AUTO) 231 K/uL (140-450); RED BLOOD CELL COUNT(AUTO) 4.64 MIL/uL (4.20-5.40); RED CELL DISTRIBUTION WIDTH 13.9 % (11.6-13.7); WHITE BLOOD COUNT (AUTO) 5.8 K/uL (4.8-10.8)
[2023-10-01 17:12] LABS: ANION GAP 11.1 (8-16); CALCIUM 9.2 mg/dL (8.5-10.1); CARBON DIOXIDE 27.7 mmol/L (21-32); CHLORIDE 103 mmol/L (98-107); CREATININE 0.7 mg/dL (0.6-1.3); GLUCOSE 103 mg/dL (74-106); POTASSIUM 3.8 mmol/L (3.5-5.1); SODIUM SERUM 138 mmol/L (136-145); UREA NITROGEN, BLOOD 11 mg/dL (7-18)
[2023-10-01 17:18] LABS: ALBUMIN 3.6 g/dL (3.4-5.0); BILIRUBIN,DIRECT 0.1 mg/dL (0.0-0.3); TOTAL BILIRUBIN 0.4 mg/dL (0.0-1.0); TOTAL PROTEIN, SERUM 7.6 g/dL (6.4-8.2)
[2023-10-01] MEDS ORDERED: ONDA-188 PO (17:44)
[2023-10-01 17:56] VITALS: BP 129/64; PULSE 63; RESP 18; TEMP 36.83628; O2SAT 97
== END 2023-10-01 18:00 | disposition home or self-care (01) ==
LOC: MED 15:29
DX: K29.70 Gastritis, unspecified, without bleeding (principal); K21.9 Gastro-esophageal reflux disease without esophagitis; I10 Essential (primary) hypertension; E78.00 Pure hypercholesterolemia, unspecified; Z79.899 Other long term (current) drug therapy
CPT/HCPCS: 36415; 80048; 80076; 83690; 84484; 85025; 93005; 99284